=== PATIENT | male | born 1945 | race Caucasian/White ===

== ENCOUNTER 2019-01-23 14:00 | Outpatient (RCR) | payer MEDICARE, MEDICAID, SELFPAY ==
[2019-01-19 09:47] VITALS: BP 144/90; PULSE 100; RESP 18; TEMP 36.2; BMI 87.2
--- NOTE | 2019-01-19 10:22 | PCM.WC.HP ---
(1) Lymphedema Status: Chronic Current Visit: Yes Code(s): I89.0 - Lymphedema, not elsewhere classified (2) Stasis dermatitis of right lower extremity due to peripheral venous hypertension Status: Chronic Current Visit: Yes Code(s): I87.321 - Chronic venous hypertension (idiopathic) with inflammation of right lower extremity History of Present Illness Chief Complaint: Right lower extremity rash,redness and swelling. History of Wound: Mr. Medel is a 73 yo who self referre to the wound center due to chroniuc /worsening right lower extemity swelling, redness / rash. He reports a chronic history of bilateral lower extremity swelling however of the last 2 years, has noted worsening right lower extremity swelling. So far has been managed at his [facility] but is unsure of what has been applied. He however denies any form of compression to his extremities. He feels well otherwise and denies chills, fever, nausea or vomitting. Past Medical History Past Medical History: Chronic Problems (Last Updated 01/19/19 @ 09:32 by Sowmya Srinivasan) Lymphedema (Chronic) Stasis dermatitis of right lower extremity due to peripheral venous hypertension (Chronic) Smoking Status: Never smoker Review of Systems Constitutional: Denies: Anorexia, Chills, Fever Eyes: Denies: Blurred vision, Pain HEENT: Denies: Difficulty Swallowing Cardiovascular: Denies: Chest Pain, Chest Tightness Respiratory: Denies: Hemoptysis Gastrointestinal: Denies: Hematemesis, Vomiting Skin: Denies: Jaundice - Physical Exam Vital Signs Temp Pulse Resp BP 97.1 F L 100 18 144/90 H 01/19/19 09:47 01/19/19 09:47 01/19/19 09:47 01/19/19 09:47 General: Alert, Oriented x3, Cooperative, No apparent distress HEENT: Atraumatic, Normocephalic Oral: Moist Mucosa Neck: Supple Lungs: Normal air movement Cardiovascular: Regular rate, Regular Rhythm, Normal S1, Normal S2 Abdomen: Soft, Obese Extremities: No cyanosis, Edema Wound Measurements and Assessment WC - Nurse 1 - General Ulcer Measurement Start: 01/19/19 09:45 Freq: Status: Active Protocol: Activity Type Activity Date Activity User E-Sign Co-Sign Detail Recorded Client Recorded Date Recorded By Document 01/19/19 09:47 IN [id number] 01/19/19 10:01 MT 01/19/19 09:47 Wound Center Nurse 1 [Edema Assessment] -Lower Limb Edema Present Yes -Right Calf (cm) 58.5 -Right Ankle (cm) 36.5 -Left Calf (cm) 54.5 -Left Ankle (cm) 41.5 WC - Nurse 2 - General Ulcer CM Notes Start: 01/19/19 09:45 Freq: Status: Active Protocol: Activity Type Activity Date Activity User E-Sign Co-Sign Detail Recorded Client Recorded Date Recorded By Document 01/19/19 10:19 AN [id number] 01/19/19 10:20 AN 01/19/19 10:19 Pain Scale: 0-10 Numeric [Pain] -Is Patient Pain Free? Yes Musculoskeletal: No Muscle Wasting Neurological: Cranial nerves II-XII grossly intact Psych/Mental Status: Normal Affect Debridement Note Post-Debridement Measurements/Treatment WC - Nurse 2 - General Ulcer CM Notes Start: 01/19/19 09:45 Freq: Status: Active Protocol: Activity Type Activity Date Activity User E-Sign Co-Sign Detail Recorded Client Recorded Date Recorded By Document 01/19/19 10:19 AN [id number] 01/19/19 10:20 AN 01/19/19 10:19 Pain Scale: 0-10 Numeric Is Patient Pain Free? Yes No debridement was completed today Assessment/Plan Active Problems (Last Updated 01/19/19 @ 09:32 by Sowmya Srinivasan) Lymphedema (Chronic) Stasis dermatitis of right lower extremity due to peripheral venous hypertension (Chronic) Assessment: Chronic venous insufficiency/ Lymphedema with severe stasis dematitis of right lower extremity. Morbid obesity. Plan: No deberidement completed today. Severe dermatitis however no open ulcers or wounds at this time. Patient states that he has had redness, swelling and rash for over 2 years. He however also admits that he stays seated for a long time with his lower extremities hanging down. Xeroform to areas of erythema. 3M wraps for edema managementt. Follow up on Wednesday for a nurse visit. Advised to elevate lower extremities when seated and in bed. Exercise as tolerated and weight loss also recommended. He will benefit from referral to lymphedema clinic. His questions were answered and he was advised to call with any further questions or concerns. Follow up with me in 1 week.
--- NOTE | 2019-01-19 10:28 | HP.PCM_ITS ---
(1) Lymphedema Status: Chronic Current Visit: Yes Code(s): I89.0 - Lymphedema, not elsewhere classified (2) Stasis dermatitis of right lower extremity due to peripheral venous hypertension Status: Chronic Current Visit: Yes Code(s): I87.321 - Chronic venous hypertension (idiopathic) with inflammation of right lower extremity History of Present Illness Chief Complaint: Right lower extremity rash,redness and swelling. History of Wound: Mr. Medel is a 73 yo who self referre to the wound center due to chroniuc /worsening right lower extemity swelling, redness / rash. He reports a chronic history of bilateral lower extremity swelling however of the last 2 years, has noted worsening right lower extremity swelling. So far has been managed at his care home but is unsure of what has been applied. He however denies any form of compression to his extremities. He feels well otherwise and denies chills, fever, nausea or vomitting. Past Medical History Past Medical History: Chronic Problems (Last Updated 01/19/19 @ 09:32 by Sowmya Srinivasan) Lymphedema (Chronic) Stasis dermatitis of right lower extremity due to peripheral venous hypertension (Chronic) Smoking Status: Never smoker Review of Systems Constitutional: Denies: Anorexia, Chills, Fever Eyes: Denies: Blurred vision, Pain HEENT: Denies: Difficulty Swallowing Cardiovascular: Denies: Chest Pain, Chest Tightness Respiratory: Denies: Hemoptysis Gastrointestinal: Denies: Hematemesis, Vomiting Skin: Denies: Jaundice - Physical Exam Vital Signs Temp Pulse Resp BP 97.1 F L 100 18 144/90 H 01/19/19 09:47 01/19/19 09:47 01/19/19 09:47 01/19/19 09:47 General: Alert, Oriented x3, Cooperative, No apparent distress HEENT: Atraumatic, Normocephalic Oral: Moist Mucosa Neck: Supple Lungs: Normal air movement Cardiovascular: Regular rate, Regular Rhythm, Normal S1, Normal S2 Abdomen: Soft, Obese Extremities: No cyanosis, Edema Wound Measurements and Assessment WC - Nurse 1 - General Ulcer Measurement Start: 01/19/19 09:45 Freq: Status: Active Protocol: Activity Type Activity Date Activity User E-Sign Co-Sign Detail Recorded Client Recorded Date Recorded By Document 01/19/19 09:47 [place] [id number] 01/19/19 10:01 MT 01/19/19 09:47 Wound Center Nurse 1 [Edema Assessment] -Lower Limb Edema Present Yes -Right Calf (cm) 58.5 -Right Ankle (cm) 36.5 -Left Calf (cm) 54.5 -Left Ankle (cm) 41.5 WC - Nurse 2 - General Ulcer CM Notes Start: 01/19/19 09:45 Freq: Status: Active Protocol: Activity Type Activity Date Activity User E-Sign Co-Sign Detail Recorded Client Recorded Date Recorded By Document 01/19/19 10:19 AN [id number] 01/19/19 10:20 AN 01/19/19 10:19 Pain Scale: 0-10 Numeric [Pain] -Is Patient Pain Free? Yes Musculoskeletal: No Muscle Wasting Neurological: Cranial nerves II-XII grossly intact Psych/Mental Status: Normal Affect Debridement Note Post-Debridement Measurements/Treatment WC - Nurse 2 - General Ulcer CM Notes Start: 01/19/19 09:45 Freq: Status: Active Protocol: Activity Type Activity Date Activity User E-Sign Co-Sign Detail Recorded Client Recorded Date Recorded By Document 01/19/19 10:19 AN [id number] 01/19/19 10:20 AN 01/19/19 10:19 Pain Scale: 0-10 Numeric Is Patient Pain Free? Yes No debridement was completed today Assessment/Plan Active Problems (Last Updated 01/19/19 @ 09:32 by Sowmya Srinivasan) Lymphedema (Chronic) Stasis dermatitis of right lower extremity due to peripheral venous hypertension (Chronic) Assessment: Chronic venous insufficiency/ Lymphedema with severe stasis dematitis of right lower extremity. Morbid obesity. Plan: No deberidement completed today. Severe dermatitis however no open ulcers or wounds at this time. Patient states that he has had redness, swelling and rash for over 2 years. He however also admits that he stays seated for a long time with his lower extremities hanging down. Xeroform to areas of erythema. 3M wraps for edema managementt. Follow up on Wednesday for a nurse visit. Advised to elevate lower extremities when seated and in bed. Exercise as tolerated and weight loss also recommended. He will benefit from referral to lymphedema clinic. His questions were answered and he was advised to call with any further questions or concerns. Follow up with me in 1 week.
[2019-01-23 14:06] VITALS: BMI 87.2
== END 2019-02-17 23:59 ==
LOC: WC 14:00
PROVIDERS: Family Provider Internal Medicine; PCP Internal Medicine; Visit Provider Internal Medicine
DX: I89.0 Lymphedema, not elsewhere classified (principal); I87.321 Chronic venous hypertension (idiopathic) with inflammation of right lower extremity; M79.89 Other specified soft tissue disorders; E66.01 Morbid (severe) obesity due to excess calories; Z68.45 Body mass index [BMI] 70 or greater, adult; Z71.3 Dietary counseling and surveillance
CPT/HCPCS: 11719; 99203; 99213; G0463